=== PATIENT | female | born 1945 | race Caucasian/White ===

== ENCOUNTER 2017-07-03 13:47 | Emergency (ER) | payer MEDICARE, OTHER ==
[~2017-07-03] VITALS: Ht 152.4 cm; Wt 60.0 kg
[~2017-07-03 13:47] MED LIST: ADLT ASA LOW81 MG PO; BUPROPION150 M3 PO; LOSARTAN POT50 MG PO; PROLIA60 MG/ML SC; SIMVASTATIN40 MG PO; SYNTHROID75 MCG PO
[2017-07-03] MEDS ORDERED: PREDNISONE50 MG PO (15:16)
[2017-07-03] MEDS ORDERED: PROAIR HFA108 MCG/AC PO (15:16)
[2017-07-03] MEDS ORDERED: ZPAK PO (15:16)
[2017-07-03 15:25] VITALS: BP 130/78
== END 2017-07-03 15:30 | disposition home or self-care (01) ==
LOC: ED 13:47
DX: J44.1 Chronic obstructive pulmonary disease with (acute) exacerbation (principal); I10 Essential (primary) hypertension; F17.200 Nicotine dependence, unspecified, uncomplicated; E07.9 Disorder of thyroid, unspecified